=== PATIENT | male | born 1985 | race Hispanic/Latino ===

== ENCOUNTER 2018-08-14 13:39 | Emergency (ER) | payer OTHER ==
[2018-08-14] MEDS ORDERED: MAG HYDROX/AL HYDROX/SIMETH ES 30 ML SUSP UDCUP ONE (14:03)
[2018-08-14] MEDS ORDERED: LIDOCAINE HCL 2% VISCOUS 15 ML UDCUP ONE (14:03)
[2018-08-14] MEDS ORDERED: TETRACAINE HCL 0.5% 4 ML OPHTH SOLN ONE (14:37)
[2018-08-14] MEDS ORDERED: FLUORESCEIN SODIUM 1 STRIP STRIP ONE (14:37)
== END 2018-08-14 15:12 | disposition home or self-care (01) ==
LOC: EDH 13:39
DX: H10.9 Unspecified conjunctivitis (principal)

== ENCOUNTER 2021-03-02 02:01 | Emergency (ER) | payer SELFPAY ==
[~2021-03-02] VITALS: Ht 167.6 cm; Wt 71.7 kg
[2021-03-02 02:22] VITALS: BP 107/61
[2021-03-02] MEDS ORDERED: ACET1TAB25 PO (02:51)
[2021-03-02] MEDS ORDERED: NAPR-1180 PO (02:51)
[2021-03-02] MEDS ORDERED: KETOROLAC 15MG/ML VIAL (15MG/ML) ONE (02:55)
[2021-03-02] MEDS ORDERED: KETOROLAC 15MG/ML VIAL (15MG/ML) IM ONE (03:00)
== END 2021-03-02 03:15 | disposition home or self-care (01) ==
LOC: EDH 02:01
DX: M25.561 Pain in right knee (principal)
CPT/HCPCS: 73562; 96372; 99283; J1885

== ENCOUNTER 2023-03-16 18:16 | Emergency (ER) | payer BC ==
[~2023-03-16] VITALS: Ht 167.6 cm; Wt 77.1 kg
[~2023-03-16 18:16] MED LIST: ACET-2079 PO; NAPR-1180 PO
[2023-03-16] MEDS ORDERED: FLUORESCEIN SODIUM 1 STRIP STRIP OP SCH (22:30)
[2023-03-16] MEDS ORDERED: TETRACAINE HCL 0.5% 4 ML OPHTH SOLN OP SCH (22:30)
[2023-03-16] MEDS ORDERED: TETRACAINE HCL 0.5% 4 ML OPHTH SOLN ONE (22:30)
[2023-03-16] MEDS ORDERED: OLOP2.5D12 OU (23:01)
[2023-03-16] MEDS ORDERED: OFLO5DRO OU (23:01)
[2023-03-16] MEDS ORDERED: [UNRECOGNIZED DRUG - CODE] OU (23:01)
[2023-03-16 23:50] VITALS: BP 129/68; PULSE 85; RESP 20; O2SAT 99
== END 2023-03-16 23:58 | disposition home or self-care (01) ==
LOC: EDH 18:16
DX: H10.9 Unspecified conjunctivitis (principal)